=== PATIENT | female | born 1945 | race Caucasian/White ===

== ENCOUNTER → 2016-09-08 | Outpatient (CLI) | payer MEDICARE, BC ==
[~2016-09-08] MED LIST: ASPIRIN 81M81 MG/TA2 PO; BUMEX 1MG TA1 MG/TA1 PO; CO ENZYME Q-1050 MG PO; FERROUS SU325 MG/TAB PO; FOLIC ACID 40400 MCG PO; K-DUR 2020 MEQ PO; K-DUR20 MEQ PO; LIPITOR20 MG PO; LOPRESSOR 550 MG/TAB PO; MOTRIN 200200 MG/TAB PO; NATURE'S BLEND100 M2 PO; NORCO 325 MG-7.1 TAB PO; OMEGA-3 FISH1200 MG PO; PEPCID 20MG TAB20 MG PO; PERCOCET 325 MG1 TA2 PO; PLAVIX 75MG TAB75 MG PO; PRINIVIL10 MG PO; SENOKOT8.6 MG PO; STIOLTO RESPIMAT4 GM IH; SYNTHROID 0.0.025 MG PO; THE MEDICINE S200 M2 PO; THEO-24 20200 MG/CAP PO; TYLENOL PM EXTR1 TA1 PO; ULTRAM 50MG TAB50 MG PO; VITAMIN B COMPL1 T16 PO; VITAMIN C500 MG PO; XARELTO10 MG PO; ZOLOFT 50MG50 MG PO; [UNRECOGNIZED DRUG - OTHER] PO
== END ==
LOC: COL.RAD 11:04
DX: S83.231A Complex tear of medial meniscus, current injury, right knee, initial encounter (principal); M94.261 Chondromalacia, right knee; M25.461 Effusion, right knee

== ENCOUNTER 2016-09-18 05:14 | Day surgery (SDC) | payer MEDICARE, BC ==
[2016-09-18] VITALS (8 sets, daily range): BP systolic 126–146; BP diastolic 53–90; PULSE 81–90; TEMP 97.7–98.3
[~2016-09-18] VITALS: Ht 160 cm; Wt 93.2 kg
[~2016-09-18 05:14] MED LIST changes: -NATURE'S BLEND100 M2 PO; -PRINIVIL10 MG PO; -STIOLTO RESPIMAT4 GM IH; -THE MEDICINE S200 M2 PO; -THEO-24 20200 MG/CAP PO; -[UNRECOGNIZED DRUG - OTHER] PO
[2016-09-18] MEDS ORDERED: [UNRECOGNIZED DRUG - OTHER] PO (06:55)
[2016-09-18] MEDS ORDERED: THE MEDICINE S200 M2 PO (06:55)
[2016-09-18] MEDS ORDERED: NATURE'S BLEND100 M2 PO (06:56)
[2016-09-18] MEDS ORDERED: STIOLTO RESPIMAT4 GM IH (06:57)
[2016-09-18] MEDS ORDERED: THEO-24 20200 MG/CAP PO (06:57)
[2016-09-18] MEDS ORDERED: PRINIVIL10 MG PO (06:58)
[2016-09-18] MEDS ORDERED: ZOLOFT 50MG50 MG PO (06:58)
[2016-09-18] MEDS ORDERED: ULTRAM 50MG TAB50 MG PO (07:01)
[2016-09-18] MEDS ORDERED: NORCO 325 MG-7.1 TAB PO (08:57)
== END 2016-09-18 10:20 | disposition home or self-care (01) ==
LOC: SDCO 05:14
DX: S83.231A Complex tear of medial meniscus, current injury, right knee, initial encounter (principal); M17.11 Unilateral primary osteoarthritis, right knee; W19.XXXA Unspecified fall, initial encounter; J44.9 Chronic obstructive pulmonary disease, unspecified
CPT/HCPCS: 29881; G0289; J0690; J1100; J2405; J2704; J3010; J7120

== ENCOUNTER → 2017-03-27 | Outpatient (CLI) | payer MEDICARE, BC ==
[~2017-03-27] MED LIST changes: +MELATONIN5 M1 SL; +NATURE'S BLEND100 M2 PO; +PRINIVIL10 MG PO; +STIOLTO RESPIMAT4 GM IH; +THE MEDICINE S200 M2 PO; +THEO-24 20200 MG/CAP PO; +[UNRECOGNIZED DRUG - OTHER] PO
== END ==
LOC: COL.LAB 10:32
DX: Z01.812 Encounter for preprocedural laboratory examination (principal)

== ENCOUNTER → 2017-04-12 | Outpatient (REF) | LOC: ZCOL.LAB 15:59 | DX: A49.9 Bacterial infection, unspecified (principal) ==

== ENCOUNTER → 2017-10-12 | Outpatient (CLI) | payer MEDICARE, BC | LOC: MC.RAD 11:14 | DX: Z12.31 Encounter for screening mammogram for malignant neoplasm of breast (principal) ==

== ENCOUNTER → 2018-04-22 | Outpatient (CLI) | payer MEDICARE, BC ==
[~2018-04-22] MED LIST changes: +LASIX 40MG TABL40 MG PO
== END ==
LOC: COL.RAD 13:45
DX: I25.10 Atherosclerotic heart disease of native coronary artery without angina pectoris (principal); I65.21 Occlusion and stenosis of right carotid artery; I65.01 Occlusion and stenosis of right vertebral artery; J44.9 Chronic obstructive pulmonary disease, unspecified; J84.10 Pulmonary fibrosis, unspecified; M47.812 Spondylosis without myelopathy or radiculopathy, cervical region; J98.4 Other disorders of lung; Z98.890 Other specified postprocedural states
CPT/HCPCS: Q9967

== ENCOUNTER 2018-05-08 15:02 | Emergency (ER) | payer MEDICARE, BC ==
[~2018-05-08] VITALS: Ht 160 cm; Wt 95.5 kg
[~2018-05-08 15:02] MED LIST changes: -LASIX 40MG TABL40 MG PO
[2018-05-08 15:10] VITALS: TEMP 97.4
[2018-05-08 16:03] LABS: ARTERIAL BLD GAS O2 SATURATION 92.9 % (92-100); ARTERIAL BLOOD GAS BASE EXCESS 0.9 (-2-2); ARTERIAL BLOOD GAS HCO3 24.9 meq/L (22-26); ARTERIAL BLOOD GAS PCO2 37.8 mmHg (35-45); ARTERIAL BLOOD GAS PO2 63.3 mmHg (80-100); ARTERIAL BLOOD GAS pH 7.44 (7.35-7.45)
[2018-05-08 16:35] LABS: BASO # 0.1 (0.0-0.2); BASO % 0.6 % (0.0-2.0); EOS # 0.2 (0.0-0.7); EOS % 1.8 % (0-4.0); GRAN % 57.7 % (42.2-75.2); HEMATOCRIT 44.2 % (37.0-47.0); HEMOGLOBIN 14.5 g/dl (12.5-16.0); LYMPH # 2.7 (1.2-3.4); LYMPH % 30.9 % (20.0-51.0); MEAN CELL VOLUME 93 fl (80.0-100.0); MEAN CORPUSCULAR HEMOGLOBIN 31 pg (27.0-31.0); MEAN CORPUSCULAR HGB CONC 33 g/dl (33.0-37.0); MEAN PLATELET VOLUME 11.1 fl (7.4-10.4); MONO # 0.8 (0.1-0.6); MONO % 8.8 % (1.7-9.3); PLATELET COUNT 261 K/mm3 (130-400); RED BLOOD COUNT 4.74 M/mm3 (4.10-5.30); REDCELL DISTRIBUTION WIDTH-CV 13.1 % (11.5-14.5)
[2018-05-08 16:45] LABS: INR 1.1 (0.8-3.0); PROTHROMBIN TIME 12.5 SECONDS (9.7-12.8)
[2018-05-08 16:52] LABS: ALANINE AMINOTRANSFERASE 30 U/L (9-52); ALBUMIN 3.8 gm/dL (3.5-5.0); ALKALINE PHOSPHATASE 88 U/L (50-136); ANION GAP 5 mmol/L (7-16); AST,SGOT 25 U/L (15-37); BILIRUBIN,TOTAL 1.1 mg/dL (0.0-1.0); BLOOD UREA NITROGEN 17 mg/dL (7-17); CALCIUM 9.5 mg/dL (8.4-10.2); CARBON DIOXIDE 27 mmol/L (22-30); CHLORIDE 108 mmol/L (98-107); CREATININE, serum 0.68 mg/dL (0.52-1.25); GLUCOSE 90 mg/dL (74-106); SODIUM 140 mmol/L (137-145); TOTAL PROTEIN 6.8 gm/dL (6.4-8.2)
[2018-05-08 17:04] LABS: TROPONIN-I < 0.012 ng/mL (0.000-0.034)
[2018-05-08] MEDS ORDERED: LASIX 40MG TABL40 MG PO (19:16)
[2018-05-08 19:26] VITALS: BP 110/76; PULSE 62
== END 2018-05-08 19:28 | disposition home or self-care (01) ==
LOC: COL.ER 15:02
PROVIDERS: Emergency Medicine
DX: J81.1 Chronic pulmonary edema (principal); I11.0 Hypertensive heart disease with heart failure; J44.9 Chronic obstructive pulmonary disease, unspecified; E78.5 Hyperlipidemia, unspecified; I25.10 Atherosclerotic heart disease of native coronary artery without angina pectoris; I50.9 Heart failure, unspecified; Z87.891 Personal history of nicotine dependence; Z90.710 Acquired absence of both cervix and uterus; Z98.890 Other specified postprocedural states; Z79.82 Long term (current) use of aspirin
CPT/HCPCS: J1940; Q9967

== ENCOUNTER → 2020-06-07 | Outpatient (CLI) | payer MEDICARE, BC ==
[~2020-06-07] MED LIST changes: +LASIX 40MG TABL40 MG PO
== END ==
LOC: MC.RAD 11:45
DX: Z12.31 Encounter for screening mammogram for malignant neoplasm of breast (principal)

== ENCOUNTER 2021-09-10 11:25 | Outpatient (CLI) | payer MEDICARE, BC ==
[~2021-09-10] VITALS: Ht 160 cm; Wt 94.5 kg
[2021-09-10] VITALS (7 sets, daily range): BP systolic 116–148; BP diastolic 61–71; PULSE 62–89; TEMP 98
[2021-09-10] MEDS ORDERED: PEPCID 20MG TAB20 MG PO (12:09)
[2021-09-10] MEDS ORDERED: COZAAR 25MG25 MG/TAB PO (12:09)
[2021-09-10] MEDS ORDERED: MEGARED JOINT353 MG PO (12:10)
[2021-09-10] MEDS ORDERED: VITAMIN B COMPL1 SGL PO (12:11)
[2021-09-10] MEDS ORDERED: MOTRIN 400400 MG/TAB PO (12:11)
[2021-09-10] MEDS ORDERED: MASON NATURAL2000 IU PO (12:20)
[2021-09-10] MEDS ORDERED: PROAIR HFA0.09 MG/AC IH (12:20)
[2021-09-10] MEDS ORDERED: PRESERVISION1 SGL PO (12:21)
--- NOTE | 2021-09-10 13:25 | NUR ---
Pt tolerated infusion and 1 hr observation period without issue or signs of medication reaction. INT DC'd with catheter intact. Pt transfers from recliner into wheelchair without issue. She is assisted out to ED entrance.
== END 2021-09-10 13:30 | disposition home or self-care (01) ==
LOC: EUO 11:25
DX: U07.1 COVID-19 (principal)
CPT/HCPCS: M0247; Q0247

== ENCOUNTER 2021-12-18 19:59 | Emergency (ER) | payer MEDICARE, BC ==
[~2021-12-18] VITALS: Ht 160 cm; Wt 92.7 kg
[~2021-12-18 19:59] MED LIST changes: +COZAAR 25MG25 MG/TAB PO; +MASON NATURAL2000 IU PO; +MEGARED JOINT353 MG PO; +MOTRIN 400400 MG/TAB PO; +PRESERVISION1 SGL PO; +PROAIR HFA0.09 MG/AC IH; +VITAMIN B COMPL1 SGL PO
[2021-12-18 20:04] VITALS: TEMP 98.1
[2021-12-18 20:51] LABS: BASO % 0.2 % (0.0-2.0); EOS % 0.3 % (0.0-4.0); GRAN # 8.4 K/mm3 (1.4-6.5); HEMATOCRIT 44.6 % (37.0-47.0); HEMOGLOBIN 14.9 g/dl (12.5-16.0); LYMPH # 4.1 K/mm3 (1.2-3.4); LYMPH % 29.9 % (20.0-51.0); MEAN CELL VOLUME 91 fl (80.0-100.0); MEAN CORPUSCULAR HEMOGLOBIN 30 pg (27-31); MEAN CORPUSCULAR HGB CONC 33 g/dl (33.0-37.0); MEAN PLATELET VOLUME 10.6 fl (7.4-10.4); MONO # 1.1 K/mm3 (0.1-0.6); MONO % 8.2 % (1.7-9.3); PLATELET COUNT 293 K/mm3 (130-400); REDCELL DISTRIBUTION WIDTH-CV 13.4 % (11.5-14.5)
[2021-12-18 21:11] LABS: ALBUMIN 3.5 gm/dL (3.4-4.8); BILIRUBIN,TOTAL 0.6 mg/dL (0.2-1.2); CALCIUM 9.5 mg/dL (8.4-10.2); CREATININE, serum 0.74 mg/dL (0.57-1.11); POTASSIUM 3.6 mmol/L (3.5-4.5); TOTAL PROTEIN 7.5 gm/dL (6.2-8.1)
[2021-12-18 21:38] LABS: COLLECTION METHOD CLEAN CATCH
[2021-12-18 21:48] LABS: PH 5 (5-8); SQUAMOUS EPITHELIAL 0-2 /hpf (0-10); URINE APPEARANCE Hazy (CLEAR/HAZY); URINE BACTERIA None Seen /hpf (NONE SEEN); URINE BILIRUBIN Negative (NEGATIVE); URINE BLOOD Negative (NEGATIVE); URINE COLOR Yellow (YELLOW); URINE GLUCOSE Negative (NEGATIVE); URINE KETONE Negative (NEGATIVE); URINE LEUKOCYTE ESTERASE Negative (NEGATIVE); URINE NITRATE Negative (NEGATIVE); URINE PROTEIN(semi-quant) Negative (NEGATIVE); URINE RBC 0-2 /hpf (0-2); URINE UROBILINOGEN Negative (NEGATIVE)
[2021-12-18] MEDS ORDERED: ULTRAM 50MG TAB50 MG PO (22:10)
[2021-12-18 22:35] VITALS: BP 195/94; PULSE 74
== END 2021-12-18 22:42 | disposition home or self-care (01) ==
LOC: COL.ER 19:59
PROVIDERS: Nurse Practitioner
DX: S00.83XA Contusion of other part of head, initial encounter (principal); S40.011A Contusion of right shoulder, initial encounter; W01.198A Fall on same level from slipping, tripping and stumbling with subsequent striking against other object, initial encounter; Y92.002 Bathroom of unspecified non-institutional (private) residence as the place of occurrence of the external cause

== ENCOUNTER → 2022-02-18 | Outpatient (CLI) | payer MEDICARE, BC | LOC: COL.VAS 11:13 | DX: I34.0 Nonrheumatic mitral (valve) insufficiency (principal); J44.9 Chronic obstructive pulmonary disease, unspecified; I51.7 Cardiomegaly ==

== ENCOUNTER → 2022-03-06 | Outpatient (CLI) | payer MEDICARE, BC | LOC: COL.CARD 07:53 | DX: R55 Syncope and collapse (principal) ==